=== PATIENT | female | born 1945 | race Caucasian/White ===

== ENCOUNTER 2017-07-07 11:11 | Inpatient (IN) ==
--- NOTE | 2017-07-07 09:54 | Discharge Summary ---
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: Chronic Qualifiers: Fracture type: closed Laterality: right Qualified Code(s): S42.251K - Displaced fracture of greater tuberosity of right humerus, subsequent encounter for fracture with nonunion (2) Brachial plexus injury, right Priority: Primary Status: Acute Qualifiers: Encounter type: initial encounter Qualified Code(s): S14.3XXA - Injury of brachial plexus, initial encounter (3) Tobacco abuse Priority: Secondary Status: Chronic (4) Hyperlipidemia Priority: Secondary Status: Chronic Qualifiers: Hyperlipidemia type: pure hypercholesterolemia Qualified Code(s): E78.00 - Pure hypercholesterolemia, unspecified; E78.0 - Pure hypercholesterolemia (5) HTN (hypertension) Priority: Primary Status: Acute Qualifiers: Hypertension type: essential hypertension Qualified Code(s): I10 - Essential (primary) hypertension - Discharge Medications Home Medications: Ibuprofen [Motrin] 600 mg PO BID PRN 07/07/17 [History] Mv-Mn/FA/Vit K/Lycop/Lut/Coq10 [Daily Multivitamin Capsule] 1 tab PO DAILY 07/07 [History] OxyCODONE Immed Rel [Roxicodone 5 MG] 5 mg PO Q4HR PRN #24 tablet 07/07/17 [Rx] Allergies/Adverse Reactions: 3 Allergy/AdvReac Type Severity Reaction Status Date / Time Sulfa (Sulfonamide Allergy Rash Verified 07/07/17 11:52 Antibiotics) Primary care physician: Wilian Minor MD - Patient Status Disposition: Transfer Inpatient Rehab Fac Condition: Good Functional capacity at discharge: independent ambulation Overall status at discharge: patient is progressing back to baseline - Discharge Instructions Follow Up With: Wilian Minor MD [Primary Care Provider] - - Hospital Course Hospital course: Ms. Coffey is a 71 year old female Status post right total shoulder replacement reverse. Patient with an episode of acute hypertension divided by hospitalist. Patient seen this morning doing well no complaints. Otherwise The patient had an uneventful postoperative course. They received antibiotics and physical therapy and were discharged in stable condition. There will follow-up in the office in 2 weeks. - Time Spent with Patient Total time spent providing and/or coordinating discharge services:
[2017-07-07] MEDS ORDERED: Albuterol 2.5 MG/3 ML NEBULIZER IH ONE (11:33)
[2017-07-07] MEDS ORDERED: CeFAZolin Syr 2,000MG/20 ML 2,000 MG/20 ML SYRINGE IVPB ONE (11:33)
[2017-07-07] MEDS ORDERED: Ringers Solution, Lactated 1,000 ML IVC SCH ×2 (11:45→16:36)
--- NOTE | 2017-07-07 12:15 | History & Physical Report ---
Date of Encounter: 07/07/17 Time of Encounter: 12:15 24 Hour HP Update - Instructions Instructions: If the History and Physical is less than 30 days old and was completed prior to A.M. admission and or procedure and has NOT been updated on calendar day of procedure please complete this update prior to performing procedure. - Update Patient reports changes in Medical Condition: No Changes in examination, assessment, or condition: No Changes in Medication: No Preop tests/diagnostics Reviewed: Yes Surgery Remains Indicated: Yes Consent for Planned Operative Procedure(s) Verified: Yes - Pre-Operative Checklist Preoperative Checklist Indicated: No Prophylactic Antibiotic Ordered: Yes Is VTE Prophylaxis Indicated?: Yes
[2017-07-07] MEDS ORDERED: *HR* Labetalol 20 MG/4 ML SYRINGE IVP PRN (12:16)
[2017-07-07] MEDS ORDERED: *HR* Promethazine 25 MG/ML VIAL IVP PRN (12:16)
[2017-07-07] MEDS ORDERED: Acetaminophen IV 1,000 MG/100 ML INFUS..BTL IVPB ONE (12:17)
--- NOTE | 2017-07-07 12:21 | Anesthesia Evaluation PreOp ---
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 (Complete tear R-Rotator cuff w/ suspected brachial plexus injury) Other Medical History: Denies Any Significant HX, Other (Squamous cell Ca L-hand , R-upper back) Anesthesia History: No Prior Anesthetic Complications, Past Anesthesia (Allie, Ulnar nerve transposition) Alcohol Use: occasionally Drug use: none Medications and Allergies HYDROcodone/Acet 5/325 mg [[place] 5-325 mg] 1 tab PO HS 07/07/17 [History] Ibuprofen [Motrin] 600 mg PO BID PRN 07/07/17 [History] Mv-Mn/FA/Vit K/Lycop/Lut/Coq10 [Daily Multivitamin Capsule] 1 tab PO DAILY 07/07 [History] OxyCODONE Immed Rel [Roxicodone 5 MG] 5 mg PO Q4HR PRN #24 tablet 07/07/17 [Rx] 3 Allergy/AdvReac Type Severity Reaction Status Date / Time Sulfa (Sulfonamide Allergy Rash Verified 07/07/17 11:52 Antibiotics) - Meds/Allergy Pre-op Review Medications Reviewed: Yes Allergies Reviewed: Yes Beta Blockers on Current Med List: No Anesthesia Exam O2 Sat Height 1.68 m Height 1.68 m Height 1.68 m Weight 58.967 kg Weight 58.967 kg Weight 59.421 kg O2 Sat by Pulse Oximetry 95 Vital Signs Temp Pulse Resp BP Pulse Ox 97.9 F 75 18 164/85 95 07/07/17 11:56 07/07/17 11:56 07/07/17 11:56 07/07/17 11:56 07/07/17 11:56 Height: 5'6 Weight: 131# BMI = 21 - HEENT Pupil (Motor): Pupils equal, EOMI Mallampati: II Teeth: Edentulous Oral Opening: Greater than 3 - 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 Sarah Beth Martinez MD
[2017-07-07] MEDS ORDERED: Gabapentin 300 MG CAPSULE PO STA ×2 (12:24→15:43)
[2017-07-07] MEDS ORDERED: cloNIDine HCl 0.1 MG TABLET PO ONE ×2 (12:32→15:39)
[2017-07-07] MEDS ORDERED: Ondansetron 4 MG/2 ML VIAL ONE (12:52)
[2017-07-07] MEDS ORDERED: *HR* Succinylcholine 200 MG/10 ML VIAL IVP ONE (12:52)
[2017-07-07] MEDS ORDERED: Lidocaine -MPF 2% 2 ML VIAL ONE (12:52)
[2017-07-07] MEDS ORDERED: Dexamethasone 4 MG/ML VIAL ONE (12:52)
[2017-07-07] MEDS ORDERED: *HR* FentaNYL (PF) 100 MCG/2 ML VIAL ONE ×2 (12:52→14:04)
[2017-07-07] MEDS ORDERED: *HR* Midazolam HCl 2 MG/2 ML VIAL ONE ×2 (12:58→12:59)
[2017-07-07] MEDS ORDERED: *HR* Propofol 200 MG/20 ML VIAL IVP ONE (12:58)
[2017-07-07 13:06] LABS: Basophils % 0.5 %; Eosinophils % 0.5 %; Hematocrit 39.5 % (35.3-44.9); Hemoglobin 13.3 g/dL (11.5-15.4); Immature Granulocytes % 1.6 % (0-4); Lymphocytes # 2.1 K/mcL (0.6-4.6); Lymphocytes % 25.9 %; Mean Corpuscular HGB Conc 33.7 g/dL (31.6-35.5); Mean Corpuscular Volume 89.2 fL (83.0-100.0); Mean Platelet Volume 10.7 fL (9.4-12.4); Monocytes # 0.9 K/mcL (0.0-1.3); Monocytes % 11.5 %; Neutrophils # 4.9 K/mcL (1.6-8.9); Nucleated Red Blood Cells 0.2 /100 WBC (0); Platelet Count 191 K/mcL (140-400); Red Blood Count 4.43 M/mcL (3.82-4.97); Red Cell Distribution Width 11.9 % (11.5-14.5)
[2017-07-07 13:18] LABS: BUN/Creatinine Ratio 23 (6-26); Blood Urea Nitrogen 15 mg/dL (7-20); Calcium 9.1 mg/dL (8.6-10.8); Carbon Dioxide 22 mEq/L (19-29); Chloride 111 mEq/L (98-109); Glucose 92 mg/dL (70-99); Osmolality,Calculated 298 (280-300); Sodium 144 mEq/L (136-145); eGFR For African Americans > 60 (> 60); eGFR For Non-African Americans > 60 (> 60)
[2017-07-07 13:19] LABS: Potassium 3.8 mEq/L (3.5-4.5)
[2017-07-07] MEDS ORDERED: Lidocaine -MPF 4% 5 ML AMPUL ONE (13:57)
[2017-07-07] MEDS: *HR* HYDROmorphone (PF) 1 MG/ML SYRINGE IVP PRN ×6 (14:59→16:03)
[2017-07-07 15:26] LABS: Hematocrit 35.4 % (35.3-44.9)
[2017-07-07 15:28] LABS: Hemoglobin 11.5 g/dL (11.5-15.4)
[2017-07-07] MEDS ORDERED: *HR* Magnesium Sulfate 1 GM/2 ML VIAL ONE ×2 (15:40)
[2017-07-07] MEDS ORDERED: Gabapentin 300 MG CAPSULE ONE (15:44)
[2017-07-07] MEDS ORDERED: cloNIDine HCl 0.1 MG TABLET ONE (15:44)
[2017-07-07] MEDS ORDERED: *HR* HYDROmorphone (PF) 1 MG/ML SYRINGE IVP PRN ×3 (15:45→16:36)
[2017-07-07] MEDS ORDERED: MOM Conc 10 ML UD.LIQ PO PRN (16:36)
[2017-07-07] MEDS ORDERED: Sennosides 8.6 MG TABLET PO PRN (16:36)
[2017-07-07] MEDS ORDERED: Ondansetron 4 MG/2 ML VIAL IVP PRN (16:36)
[2017-07-07] MEDS ORDERED: Temazepam 15 MG CAPSULE PO PRN (16:36)
[2017-07-07] MEDS ORDERED: Naloxone 0.4 MG/ML INJ IVP PRN (16:36)
[2017-07-07] MEDS ORDERED: *HR* OxyCODONE Immed Rel 5 MG TABLET PO PRN (16:36)
[2017-07-07] MEDS: *HR* Enoxaparin 30 MG/0.3 ML SYRINGE SQ SCH (17:10)
--- NOTE | 2017-07-07 17:38 | Electrocardiograph Report ---
[place] [employer] Interactive Test Date: 2017-07-07 Pat Name: Mary Coffey Department: 106 Room: [facility] Gender: Relief Man: PAO : 1945 Requested By: Gurvinder Dinero Order Number: [id number] Reading MD: Tyler Santos MD Measurements Intervals [place] Rate: 69 P: 46 WV: 160 QRS: 34 QRSD: 82 T: 61 QT: 423 QTc: 442 Interpretive Statements SINUS RHYTHM POSSIBLE ANTERIOR MYOCARDIAL INFARCTION, OF INDETERMINATE AGE POSSIBLE INFERIOR MYOCARDIAL INFARCTION, PROBABLY OLD Electronically Signed On 07-07-2017 17:37:26 EDT by Tyler Santos MD
[2017-07-07] MEDS ORDERED: *HR* Enoxaparin 30 MG/0.3 ML SYRINGE SQ SCH (18:00)
--- NOTE | 2017-07-07 18:44 | Anesthesia Evaluation Post Op ---
Date of Encounter: 07/07/17 Time of Encounter: 16:20 - Vital Signs Vital Signs: Vital Signs Temp Pulse Resp BP Pulse Ox 07/07/17 16:23 64 18 182/90 96 07/07/17 16:13 66 18 172/90 94 07/07/17 16:03 98.0 F 66 18 188/94 97 07/07/17 15:53 66 18 185/95 94 07/07/17 15:43 61 18 191/100 94 07/07/17 15:33 98.1 F 61 18 94 07/07/17 15:23 98.2 F 64 18 186/94 94 07/07/17 15:13 66 18 189/97 99 07/07/17 15:03 98.0 F 62 18 182/98 100 07/07/17 14:53 98.0 F 65 14 162/91 100 07/07/17 14:14 97.9 F 75 18 164/85 95 07/07/17 11:56 97.9 F 75 18 164/85 95 Intake and Output 07/07/17 07/07/17 07/07/17 07:59 15:59 23:59 Output Total 100 / 100 Balance -100 / -100 Output: Urine 0 / 0 Estimated Blood Loss 100 / 100 Other: Weight 58.967 kg Patient Weight 07/07/17 23:59 Weight 58.967 kg - Lungs Lungs: Clear Ascult./Percussion - Airway Airway: Non-obstructed - Cardiovascular Regular Rate - Mental Status Mental Status: Alert & Oriented, Answers Appropriately - Pain Pain Scale: 0 Pain Scale used: Numeric (1 - 10) - Nausea Vomiting Nausea Vomiting: Not Present - Hydration Hydration: Tolerates oral liquids - Discharge PostOp Status: Transfer Patient to floor Anes Supervising Prov Stmt: Pt seen/evaluated, VSS and pt has met criteria for discharge to floor. -MD Juan
[2017-07-08] MEDS: CeFAZolin Premix DUPLEX 2,000 MG/50 ML BAG IVPB SCH ×2 (00:35→06:34)
[2017-07-08 04:02] LABS: Hematocrit 36.4 % (35.3-44.9); Hemoglobin 12.3 g/dL (11.5-15.4)
[2017-07-08] MEDS: *HR* Enoxaparin 30 MG/0.3 ML SYRINGE SQ SCH ×2 (06:35→17:36)
[2017-07-08] MEDS: Multivit/Ca/Min/Fe/FA 1 TAB TABLET PO SCH (08:32)
--- NOTE | 2017-07-08 10:12 | Orthopedics Progress Note ---
Date of Encounter: 07/08/17 Time of Encounter: 10:11 Subjective Interval history: Patient was seen this morning doing well without complaints. Afebrile vital signs stable. Operative extremity: Neurovascularly intact Dressing clean dry and intact Calves nontender Assessment and plan: Continue with postoperative care Objective Vital signs: Vital Signs Temp Pulse Resp BP Pulse Ox 07/08/17 06:52 98.3 F 76 14 174/80 92 07/07/17 21:00 97.7 F 76 15 169/82 92 07/07/17 19:45 98.7 F 14 136/81 92 07/07/17 18:40 98.0 F 62 16 147/85 92 07/07/17 17:45 98.0 F 60 16 150/82 91 07/07/17 17:15 97.9 F 63 16 158/81 90 07/07/17 16:45 97.7 F 68 14 168/97 93 07/07/17 16:23 64 18 182/90 96 07/07/17 16:13 66 18 172/90 94 07/07/17 16:03 98.0 F 66 18 188/94 97 07/07/17 15:53 66 18 185/95 94 07/07/17 15:43 61 18 191/100 94 07/07/17 15:33 98.1 F 61 18 94 07/07/17 15:23 98.2 F 64 18 186/94 94 07/07/17 15:13 66 18 189/97 99 07/07/17 15:03 98.0 F 62 18 182/98 100 07/07/17 14:53 98.0 F 65 14 162/91 100 07/07/17 14:14 97.9 F 75 18 164/85 95 07/07/17 11:56 97.9 F 75 18 164/85 95 Intake and Output 07/07/17 07/08/17 07/08/17 23:59 07:59 15:59 Intake Total 50 / 50 480 / 480 Output Total 200 / 200 Balance -150 / -150 480 / 480 Intake: IV Fluids 50 / 50 Ancef Premix DUPLEX 2,000 mg In 50 / 50 50 ml @ 100 mls/hr IVPB Q8H [place] Rx#:[id number] Oral 480 / 480 Output: Urine 200 / 200 Other: Meal Breakfast Percent of Meal Consumed 90% - Labs CBC & BMP: 07/08/17 03:22 07/07/17 12:59 Labs: Abnormal lab results Nucleated RBCs/100 WBC 0.2 /100 WBC (0) H 07/07/17 12:59 Chloride 111 mEq/L (98-109) H 07/07/17 12:59 - VTE Documentation of Mechanical Device: Venous foot pump, device Consult Discharge Plan - Plan Referrals: Wilian Minor MD [Primary Care Provider] -
[2017-07-08] MEDS: *HR* OxyCODONE Immed Rel 5 MG TABLET PO PRN (20:10)
--- NOTE | 2017-07-08 22:51 | Internal Medicine Consult Note ---
<Bravo Angeles - Last Filed: 07/08/17 23:30> Date of Encounter: 07/08/17 Time of Encounter: 22:00 - Assessment and Plan (1) Brachial plexus injury, right Current Visit: Yes Status: Acute Qualifiers: Encounter type: initial encounter Qualified Code(s): S14.3XXA - Injury of brachial plexus, initial encounter (2) HTN (hypertension) Current Visit: Yes Status: Acute Assessment and plan: Acute HTN r/t current injury. Pt. reports HTN following previous surgical intervention. Denies taking medications currently for HTN. Will administer lisinopril 10 mg daily, amlodipine 5 mg daily, and hydralazine 10 mg every 6 when necessary. Monitor pt. and VS. 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 of HLD, but pt. denies use of statin currently. Lipid panel in a.m. labs. Qualifiers: Hyperlipidemia type: pure hypercholesterolemia Qualified Code(s): E78.00 - Pure hypercholesterolemia, unspecified; E78.0 - Pure hypercholesterolemia (5) Tobacco abuse Current Visit: Yes Status: Chronic Assessment and plan: Hx of chronic tobacco abuse. Pt. reports smoking 1 PPD w/o intent to quit at this time. (6) DVT prophylaxis Current Visit: Yes Status: Acute Assessment and plan: Bilateral SCDs on LEs for DVT prophylaxis. Internal Medicine - CN: HPI - Data of Consult Patient: new to practice Requesting Physician: Gurvinder Dinero MD - Consult Narrative Reason for consult: Monitor and address HTN History of present illness: Ms. Coffey is a 71 year old female with medical hx of hyperlipidemia, osteoporosis , and chronic tobacco abuse who presents with displaced closed fracture of greater tuberosity of humerus with nonunion. Pt. reports that she fell and injured her right shoulder. Pt. also reports previous fall and injury in January 2017. Pt. reports pain in right shoulder and cough r/t current tobacco abuse but denies recent illness, fever, chills, nausea, vomiting, abdominal pain, chest pain, palpitations, weakness, numbness, tingling, dizziness, lightheadedness, changes in vision, unusual bleeding, pre-syncope, or syncope. Pt. also denies taking medications for HTN or HLD at the present time. Past Med Surg Social Fam HX - Past Medical History Source: patient, old records reviewed Medical history: hyperlipidemia, osteoporosis Psychiatric history: no psych history - Past Surgical History Surgical History: cholecystectomy - Social History Smoking Status: Current every day smoker Packs per day: 1 PPD Alcohol use: occasionally Drug use: none Current living situation: Home, With Family Activity Level: Independent ambulation Recent Out of Country Travel Within the Last 8 Weeks: No Exposure or Possible Exposure to Illness During Travel: No - Family History Father Race: Family Member Ethnicity: Non- Living Status: Age at : 82 Cause of : Old age Hx Family Medical Disorders: No Mother Race: Family Member Ethnicity: Non- Living Status: Cause of : Suicide Brother Race: Family Member Ethnicity: Non- Living Status: Age at : 68 Cause of : Colon cancer Hx Family Cancer: Yes (Colon) Sister Race: Family Member Ethnicity: Non- Living Status: Still Living Hx Family Autoimmune Disorders: Yes (Lupus) - Constitutional Constitutional: as per HPI, falls - EENT Eyes: as per HPI Ears: as per HPI Nose, mouth and throat: as per HPI - Breasts Breasts: as per HPI - Cardiovascular Cardiovascular ROS IM: as per HPI - Respiratory Respiratory: as per HPI, cough - Gastrointestinal Gastrointestinal: as per HPI - Genitourinary Genitourinary: as per HPI Menstruation: as per HPI - Musculoskeletal Musculoskeletal ROS IM: as per HPI - Integumentary Integumentary IM: as per HPI - Neurological Neurological ROS: as per HPI - Psychiatric Psychiatric: as per HPI - Endocrine Endocrine IM: as per HPI - Hematologic/Lymphatic Hematologic/Lymphatic: as per HPI - Allergic/Immunologic Allergic/Immunologic: as per HPI Internal Medicine - CN: Meds Ibuprofen [Motrin] 600 mg PO BID PRN 07/07/17 [History] Mv-Mn/FA/Vit K/Lycop/Lut/Coq10 [Daily Multivitamin Capsule] 1 tab PO DAILY 07/07 [History] OxyCODONE Immed Rel [Roxicodone 5 MG] 5 mg PO Q4HR PRN #24 tablet 07/07/17 [Rx] 3 Allergy/AdvReac Type Severity Reaction Status Date / Time Sulfa (Sulfonamide Allergy Rash Verified 07/07/17 11:52 Antibiotics) Internal Medicine - CN: Exam - Constitutional Vitals: Temp Pulse Resp BP Pulse Ox 98.6 F 63 18 143/81 90 07/08/17 19:33 07/08/17 19:33 07/08/17 19:33 07/08/17 19:33 07/08/17 19:33 General appearance IM: Present: cooperative, A&O X 3, pleasant, no acute distress, answers questions appropriately - Head Head exam: Present: normal inspection - Eye Eye exam: Present: PERRL, conjuntiva pink, sclera anicteric Pupils: Present: normal accommodation, PERRL - ENT ENT exam: Present: normal exam, normal external ear exam - Neck Neck exam general surgery: Present: normal inspection, supple, trachea midline - Respiratory Respiratory exam: Present: decreased breath sounds, wheezes - Cardiovascular Cardiovascular exam IM: Present: RRR, +S1, +S2 - GI/Abdominal GI/Abdominal exam IM: Present: normal bowel sounds, soft, no peritoneal signs - Rectal Rectal exam: Present: deferred - Additional comments: exam deferred. - Extremities Exam Extremities exam IM: Present: warm, radial pulses palpable and symmetrical - Neurological Exam Neurological exam: Present: alert, CN II-XII intact, oriented X3, no focal deficits - Psychiatric Psychiatric exam: Present: normal affect, normal mood - Skin Skin exam IM: Present: dry, intact Internal Medicine - CN: Reslt - Labs CBC & Chem 7: 07/08/17 03:22 07/07/17 12:59 Labs: Short CBC 07/08/17 Range/Units 03:22 Hgb 12.3 (11.5-15.4) g/dL Hct 36.4 (35.3-44.9) % - EKG Data EKG shows normal: sinus rhythm - EKG Data Prior EKG available for review: no Interpretation IM: suggestive of ischemia EKG comments: 07/08/17 22:58 EKG dated 07/08/17 shows sinus rhythm with possible anterior myocardial infarction of indeterminate, and possible inferior myocardial infarction ( probably old). Consult Discharge Plan - Plan Referrals: Wilian Minor MD [Primary Care Provider] - <Jasen Rodrigues H - Last Filed: 07/09/17 01:17 EDT> Date of Encounter: 07/09/17 Internal Medicine - CN: HPI - Data of Consult Requesting Physician: Gurvinder Dinero MD - Consult Narrative History of present illness: Ms. Coffey is a 71 year old female Internal Medicine - CN: Exam - Constitutional Vitals: Temp Pulse Resp BP Pulse Ox 98.4 F 68 18 164/76 91 07/08/17 23:06 07/08/17 23:06 07/08/17 23:06 07/08/17 23:06 07/08/17 23:06 Internal Medicine - CN: Reslt - Labs CBC & Chem 7: 07/08/17 03:22 07/07/17 12:59 Labs: Short CBC 07/08/17 Range/Units 03:22 Hgb 12.3 (11.5-15.4) g/dL Hct 36.4 (35.3-44.9) % - Attending Attestation Accelerated hypertension Start amlodipine 5 mg, lisinopril 10 mg, adjust as needed Hydralazine IV as needed For this encounter, I have reviewed the DIRECTOR OF DISTRIBUTION or PA documentation, treatment plan, and medical decision making; and I have had face to face time with this patient.
[2017-07-08] MEDS ORDERED: hydrALAZINE 10 MG TABLET PO PRN (23:18)
[2017-07-09] MEDS ORDERED: hydrALAZINE 10 MG TABLET PO PRN (01:17)
[2017-07-09] MEDS: amLODIPine 5 MG TABLET PO SCH ×2 (01:20→07:11)
[2017-07-09] MEDS: *HR* OxyCODONE Immed Rel 5 MG TABLET PO PRN ×2 (02:58→21:13)
[2017-07-09] MEDS: *HR* Enoxaparin 30 MG/0.3 ML SYRINGE SQ SCH ×2 (06:04→17:15)
[2017-07-09 06:48] LABS: Hematocrit 39.3 % (35.3-44.9); Hemoglobin 12.9 g/dL (11.5-15.4)
[2017-07-09 07:04] LABS: Chol/HDL Ratio 3.2 (0-4.9)
[2017-07-09] MEDS: Multivit/Ca/Min/Fe/FA 1 TAB TABLET PO SCH (07:11)
--- NOTE | 2017-07-09 10:53 | Internal Med Progress Note ---
Date of Encounter: 07/09/17 Time of Encounter: 10:05 - Assessment and plan (1) HTN (hypertension) Current Visit: Yes Status: Acute Assessment and plan: Blood pressure is now better controlled. Continue lisinopril and amlodipine. We will continue to monitor blood pressure closely. 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 Pain control. Awaiting placement to skilled rehabilitation. Qualifiers: Fracture type: closed Laterality: right Qualified Code(s): S42.251K - Displaced fracture of greater tuberosity of right humerus, subsequent encounter for fracture with nonunion (3) Hyperlipidemia Current Visit: Yes Status: Chronic Assessment and plan: Normal cholesterol profile. Qualifiers: Hyperlipidemia type: pure hypercholesterolemia Qualified Code(s): E78.00 - Pure hypercholesterolemia, unspecified; E78.0 - Pure hypercholesterolemia (4) DVT prophylaxis Current Visit: Yes Status: Acute Assessment and plan: Continue Lovenox - Subjective Interval history: Patient is feeling better today. Her pain is better controlled and her right upper extremity. Denies any headache. No chest pain. No shortness of breath - Constitutional Vitals: Temp Pulse Resp BP Pulse Ox 98.5 F 64 18 116/78 94 07/09/17 07:00 07/09/17 07:00 07/09/17 07:00 07/09/17 07:00 07/09/17 07:00 General appearance: Present: cooperative, A&O X 3, pleasant, no acute distress, answers questions appropriately - Respiratory Respiratory exam: Present: CTAB. Absent: accessory muscle use, rales, rhonchi, wheezes - GI/Abdominal GI/Abdominal exam: Present: normal bowel sounds, soft, no peritoneal signs. Absent: distended, tenderness - Extremities Exam Extremities exam: Present: warm, radial pulses palpable and symmetrical. Absent : calf tenderness, cyanotic, pedal edema Additional comments: Right upper extremity in sling Internal Medicine: Result - Labs CBC & Chem 7: 07/09/17 06:29 07/07/17 12:59 Labs: Short CBC 07/09/17 Range/Units 06:29 Hgb 12.9 (11.5-15.4) g/dL Hct 39.3 (35.3-44.9) % - VTE Documentation of Mechanical Device: Venous foot pump, device Consult Discharge Plan - Plan Referrals: Wilian Minor MD [Primary Care Provider] -
--- NOTE | 2017-07-09 11:13 | Orthopedics Progress Note ---
Date of Encounter: 07/09/17 Time of Encounter: 11:13 Subjective Interval history: Patient was seen this morning doing well without complaints. Afebrile vital signs stable. Operative extremity: Neurovascularly intact Dressing clean dry and intact Calves nontender Assessment and plan: Continue with postoperative care Anticipate D/C today Objective Vital signs: Vital Signs Temp Pulse Resp BP Pulse Ox 07/09/17 07:00 98.5 F 64 18 116/78 94 07/09/17 03:34 98.1 F 57 20 118/72 92 07/08/17 23:06 98.4 F 68 18 164/76 91 07/08/17 19:33 98.6 F 63 18 143/81 90 07/08/17 15:12 98.1 F 78 14 173/76 92 Intake and Output 07/09/17 07/09/17 07/09/17 00:59 07:59 15:59 Intake Total 360 / 360 Output Total Balance 360 / 360 Intake: Oral 360 / 360 Output: Urine Other: Meal Breakfast Percent of Meal Consumed 50% # Voids Weight Patient Weight 07/09/17 22:59 Weight 60.2 kg - Labs CBC & BMP: 07/09/17 06:29 07/07/17 12:59 Labs: Abnormal lab results Nucleated RBCs/100 WBC 0.2 /100 WBC (0) H 07/07/17 12:59 Chloride 111 mEq/L (98-109) H 07/07/17 12:59 - VTE Documentation of Mechanical Device: Venous foot pump, device Consult Discharge Plan - Plan Referrals: Wilian Minor MD [Primary Care Provider] -
[2017-07-10] MEDS: *HR* OxyCODONE Immed Rel 5 MG TABLET PO PRN ×2 (01:07→05:20)
[2017-07-10] MEDS: *HR* Enoxaparin 30 MG/0.3 ML SYRINGE SQ SCH (05:21)
--- NOTE | 2017-07-10 07:31 | Orthopedics Progress Note ---
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 Current Visit: Yes Status: Chronic Qualifiers: Fracture type: closed Laterality: right Qualified Code(s): S42.251K - Displaced fracture of greater tuberosity of right humerus, subsequent encounter for fracture with nonunion (2) Brachial plexus injury, right Current Visit: Yes Status: Acute Qualifiers: Encounter type: initial encounter Qualified Code(s): S14.3XXA - Injury of brachial plexus, initial encounter (3) Tobacco abuse Current Visit: Yes Status: Chronic (4) Hyperlipidemia Current Visit: Yes Status: Chronic Qualifiers: Hyperlipidemia type: pure hypercholesterolemia Qualified Code(s): E78.00 - Pure hypercholesterolemia, unspecified; E78.0 - Pure hypercholesterolemia (5) HTN (hypertension) Current Visit: Yes Status: Acute Qualifiers: Hypertension type: essential hypertension Qualified Code(s): I10 - Essential (primary) hypertension Subjective Interval history: Patient was seen this morning doing well without complaints. Afebrile vital signs stable. Operative extremity: Neurovascularly intact Dressing clean dry and intact Calves nontender Assessment and plan: Continue with postoperative care Discharge today Objective Vital signs: Vital Signs Temp Pulse Resp BP Pulse Ox 07/09/17 23:50 98.3 F 66 18 133/80 98 07/09/17 19:35 98.2 F 69 20 134/82 98 07/09/17 11:09 98.3 F 60 16 106/60 95 Intake and Output 07/09/17 07/09/17 07/10/17 15:59 23:59 07:59 Intake Total 720 / 720 540 / 540 Output Total 240 / 240 Balance 720 / 720 300 / 300 Intake: Oral 720 / 720 540 / 540 Output: Urine 240 / 240 Other: Meal Lunch Dinner Percent of Meal Consumed 75% 100% # Voids 1 1 Weight 61.4 kg Patient Weight 07/10/17 23:59 Weight 61.4 kg - Labs CBC & BMP: 07/09/17 06:29 07/07/17 12:59 Labs: Abnormal lab results Nucleated RBCs/100 WBC 0.2 /100 WBC (0) H 07/07/17 12:59 Chloride 111 mEq/L (98-109) H 07/07/17 12:59 - VTE Documentation of Mechanical Device: Venous foot pump, device Consult Discharge Plan - Plan Referrals: Wilian Minor MD [Primary Care Provider] -
--- NOTE | 2017-07-10 09:20 | Orthopedic Operative Note ---
Date of procedure: 07/07/17 Pre-op diagnosis: Displaced malunion greater tuberosity right shoulder Post-op diagnosis: same (Brachial plexus injury) Procedure: Procedure: Total Shoulder Replacment Reverse, right Estimated blood loss: 100 cc Hardware: Metal and polyethylene replacement: Arthrex small glenoid baseplate, 2 4.5 screws. 1 6.5 screw, and a +4 glenosphere, 7 humeral stem, poly insert 3 Exam Under anesthesia: Restrict motion all planes Procedural Notes: Displaced greater tuberosity fracture to the level of glenoid Operative procedure: The patient was brought to the operating room and placed on the operating room table. After general anesthesia was administered the operative shoulder was examined. Findings were noted. The patient was placed in the modified beachchair position. All pressure points were padded appropriately. And the head was stabilized in the neutral position. The operative extremity was prepped and draped in the sterile surgical fashion. The patient received IV antibiotics prior to skin incision. A standard deltopectoral approach was made to the operative shoulder. Incision was made to the skin and subcutaneous tissue,hemo stasis was obtained with Bovie cautery. Using careful blunt dissection the cephalic vein was identified and mobilized medially. The deltopectoral interval was developed and the clavipectoral fascia was incised. The defect was identified and the humeral head with the fracture occurred the greater tuberosity was palpated was immobile. Decision was made to proceed with reverse shoulder replacement. The subscap was released off the lesser tuberosity and tagged with #2 FiberWire suture subscap was irreparable. The humerus was dislocated patient noted to have irreparable tear supraspinatus tendon, and the humeral cut was made along the anatomic neck. Anterior and posterior Bankart retractors were placed to expose the glenoid. The glenoid guide was seated and the centering hole was made. It was reamed with the appropriate reamer. Small was seated and secured with (2) 4.5 screws and one 6.5 screw. The baseplate was irrigated and dried and the 39 +4 Glenosphere was seated and secured with the Montiel taper. The Montiel taper was tested and found to be secure the humerus was redislocated and prepared with the diaphyseal reamers, followed by a broaching process up to the appropriate size 7 in the patient's anatomic version. The metaphyseal reamer was then utilized. Trial reduction found the shoulder to be relocatable. Trial components were removed and The appropriate 7 stem was impacted in place in the patient's anatomic version. Trial reduction found the shoulder to be relocatable and stable with the appropriate 3. Trial component was removed and the real 3 was seated and secured the shoulder was reduced. The shoulder had excellent motion and excellent stability and no evidence of dislocation. The deep tissue was irrigated with pulse irrigation. The deltopectoral interval was closed with a running #1 PDS suture, subcutaneous tissue was irrigated and closed with 0 PDS suture, the skin was closed with Dermabond. The patient was placed in a sterile dressing, abduction brace and extubated. The patient was then transferred to the recovery room in stable condition. Anesthesia: TRAVISA Surgeon: Gurvinder Dinero Condition: stable Disposition: PACU
[2017-07-10] MEDS: amLODIPine 5 MG TABLET PO SCH (09:52)
[2017-07-10] MEDS: Multivit/Ca/Min/Fe/FA 1 TAB TABLET PO SCH (09:52)
--- NOTE | 2017-07-10 09:53 | Physician Discharge Referral ---
ExtendedCare Referral Info Transfer To: [facility] Provider in Charge: Provider in Charge after Transfer: PCP Institutional Level of Care: Skilled - Diagnosis (1) Status post reverse total shoulder replacement Priority: Primary Status: Acute (2) Displaced fracture of greater tuberosity of humerus with malunion Priority: Primary Status: Acute (3) Brachial plexus injury, right Priority: Primary Status: Acute (4) Tobacco abuse Priority: Secondary Status: Chronic (5) Hyperlipidemia Priority: Secondary Status: Chronic (6) HTN (hypertension) Priority: Secondary Status: Acute Expected Duration of Placement: < 30 days Prognosis: Good Aware of Diagnosis: Patient Aware of Prognosis: Patient - Transfer Medications Home Medications: Ibuprofen [Motrin] 600 mg PO BID PRN 07/07/17 [History] Mv-Mn/FA/Vit K/Lycop/Lut/Coq10 [Daily Multivitamin Capsule] 1 tab PO DAILY 07/07 [History] OxyCODONE Immed Rel [Roxicodone 5 MG] 5 mg PO Q4HR PRN #24 tablet 07/07/17 [Rx] Allergies/Adverse Reactions: 3 Allergy/AdvReac Type Severity Reaction Status Date / Time Sulfa (Sulfonamide Allergy Rash Verified 07/07/17 11:52 Antibiotics) - Respiratory Orders None Smoking Cessation: Smoking cessation has been advised. For more information, call the [employer] Quit Line at 2-960-EIACNOW. - Ancillary Orders May use pressure relief devices daily prn, May go on JUNITO w/family/respon republican w /meds at nurse discretion PRN - Mobility Orders Chair, Ambulate - Rehabiliation Orders Rehab Potential: Good Rehab Orders: ROM Exercises, Evaluation for Physical Therapy, Evaluation for Occupational Therapy Other: Pre-op diagnosis: Displaced malunion greater tuberosity right shoulder Post-op diagnosis: same (Brachial plexus injury) Procedure: Procedure: Total Shoulder Replacment Reverse, right Total Shoulder precautions x 6 weeks. PT restrictions as listed in PT referral. Sling during activity and at night. Elbow ROM and detention sergeant strengthening. Opsite in place, remove at first post-operative appointment. NWB to affected upper extremity. - Treatments Skin tear care topically daily PRN per policy - Diet Orders Regular CERTIFICATION: I certify that the transfer of the above named patient to an Extended Care Facility is necessary for the continuing treatment of the diagnosis listed. The above information is true and accurate reflection of patient's current condition. Confidential - Redisclosure prohibited without a patient's written consent.
[2017-07-10 10:50] VITALS: BP 121/70
== END 2017-07-10 12:00 | DRG 483 ==
LOC: SAMDAY 11:11 → 3NENU 16:35
PROVIDERS: ADMIT Orthopaedic Surgery; ATTEND Orthopaedic Surgery

== ENCOUNTER 2020-03-07 12:54 | Inpatient (IN) ==
[2020-03-07 13:24] LABS: Basophils # 0.1 K/mcL (0.0-0.2); Basophils % 0.5 %; Eosinophils % 0.1 %; Hematocrit 45.3 % (35.3-44.9); Hemoglobin 14.3 g/dL (11.5-15.4); Lymphocytes # 0.7 K/mcL (0.6-4.6); Lymphocytes % 6.7 %; Mean Corpuscular HGB Conc 31.6 g/dL (31.6-35.5); Mean Corpuscular Hemoglobin 28.4 pg (28.0-33.3); Mean Corpuscular Volume 90.1 fL (83.0-100.0); Mean Platelet Volume 10.6 fL (9.4-12.4); Monocytes # 0.2 K/mcL (0.0-1.3); Monocytes % 2.2 %; Neutrophils # 8.8 K/mcL (1.6-8.9); Platelet Count 184 K/mcL (140-400); Red Blood Count 5.03 M/mcL (3.82-4.97); Red Cell Distribution Width 13.1 % (11.5-14.5); Segmented Neutrophils % 89.5 %; White Blood Count 9.9 K/mcL (4.3-11.1)
[2020-03-07] MEDS ORDERED: cefTRIAXone 1,000 MG in Water for inj. (sterile) 10 ML IVP ONE (13:30)
[2020-03-07] MEDS ORDERED: Azithromycin 500 MG in 0.9 % Sodium Chloride 250 ML IVPB ONE (13:30)
[2020-03-07] MEDS: 0.9 % Sodium Chloride 1,000 ML IVC SCH ×2 (13:42→15:27)
[2020-03-07 13:48] LABS: Bilirubin,Urine Negative (Negative); Blood,Urine Small (Negative); Clarity,Urine Clear (Clear); Color,Urine Light-Yellow (Yellow); Glucose,Urine (UA) Normal (Normal); Ketones,Urine Negative (Negative); Leukocyte Esterase,Urine Small (Negative); Mucus,Urine Few per lpf (None-Few); Nitrite,Urine Negative (Negative); PH,Urine 5.5 pH Units (5.0-8.0); Protein,Urine 70 mg/dL (Neg-Trace); Specific Gravity,Urine 1.021 (1.010-1.025); Squamous Epithelial Cell,Urine Few per hpf (None-Few); Urobilinogen,Urine Normal (Normal)
[2020-03-07 14:05] LABS: Alanine Aminotransferase 31 Units/L (7-52); Albumin/Globulin Ratio 1.2 (1.1-2.2); Alkaline Phosphatase 71 Units/L (34-104); BUN/Creatinine Ratio 22 (6-26); Bilirubin,Total 0.6 mg/dL (0.3-1.0); Blood Urea Nitrogen 18 mg/dL (8-23); Calcium 9.4 mg/dL (8.6-10.3); Carbon Dioxide 22 mEq/L (23-29); Chloride 105 mEq/L (98-107); Globulin 3.3 g/dL (2.4-3.5); Glucose 214 mg/dL (70-105); Osmolality,Calculated 292 (280-300); Potassium 3.9 mEq/L (3.5-5.1); Sodium 137 mEq/L (136-145); Total Protein 7.3 g/dL (6.4-8.9); Troponin I < 0.03 ng/mL (< 0.04); eGFR For African Americans > 60 (> 60); eGFR For Non-African Americans > 60 (> 60)
[2020-03-07] MEDS ORDERED: Isovue-370 500 ML BOTTLE IVP ONE (14:22)
[2020-03-07] MEDS ORDERED: Ondansetron ODT 4 MG TAB.RAPDIS SL PRN (16:58)
[2020-03-07] MEDS ORDERED: Naloxone 0.4 MG/ML INJ IVP PRN (16:58)
[2020-03-07] MEDS ORDERED: 0.9 % Sodium Chloride 1,000 ML IVC ONE (17:28)
[2020-03-07] MEDS ORDERED: *HR* Metoprolol 5 MG/5 ML VIAL IVP ONE (17:32)
[2020-03-07] MEDS ORDERED: *HR* Heparin 5,000 UNIT/ML VIAL IVP ONE (17:34)
[2020-03-07] MEDS ORDERED: *HR* Heparin 5,000 UNIT/ML VIAL IVP PRN ×2 (17:34)
[2020-03-07] MEDS ORDERED: Heparin 25,000 UNIT/250 ML D5W 25,000 UNIT/250 ML IV.SOLN IVC SCH (17:45)
[2020-03-07 18:28] LABS: Prothrombin Time 11.5 Seconds (9.4-12.1)
[2020-03-07 18:29] LABS: Heparin anti-factor XA UFH < 0.04 IU/mL (0.30-0.70)
[2020-03-07] MEDS: IPRATROPIUM/ALBUTEROL SULFATE 120 PUFF INHALER IH PRN (20:56)
[2020-03-07] MEDS ORDERED: *HR* Heparin 5,000 UNIT/ML VIAL SQ SCH (22:00)
[2020-03-08 00:52] LABS: Basophils % 0.2 %; Hematocrit 39.2 % (35.3-44.9); Hemoglobin 12.6 g/dL (11.5-15.4); Immature Granulocytes % 0.5 % (0-4); Lymphocytes # 0.8 K/mcL (0.6-4.6); Lymphocytes % 9.9 %; Mean Corpuscular HGB Conc 32.1 g/dL (31.6-35.5); Mean Corpuscular Hemoglobin 28.8 pg (28.0-33.3); Mean Corpuscular Volume 89.5 fL (83.0-100.0); Mean Platelet Volume 11.1 fL (9.4-12.4); Monocytes # 0.6 K/mcL (0.0-1.3); Monocytes % 7.9 %; Neutrophils # 6.6 K/mcL (1.6-8.9); Platelet Count 149 K/mcL (140-400); Red Blood Count 4.38 M/mcL (3.82-4.97); Red Cell Distribution Width 12.9 % (11.5-14.5); Segmented Neutrophils % 81.5 %; White Blood Count 8.1 K/mcL (4.3-11.1)
[2020-03-08 00:56] LABS: BUN/Creatinine Ratio 25 (6-26); Blood Urea Nitrogen 18 mg/dL (8-23); Calcium 8.1 mg/dL (8.6-10.3); Carbon Dioxide 20 mEq/L (23-29); Chloride 111 mEq/L (98-107); Glucose 154 mg/dL (70-105); Osmolality,Calculated 291 (280-300); Sodium 138 mEq/L (136-145); eGFR For African Americans > 60 (> 60); eGFR For Non-African Americans > 60 (> 60)
[2020-03-08] MEDS ORDERED: 0.9 % Sodium Chloride 250 ML ONE (05:35)
[2020-03-08] MEDS: IPRATROPIUM/ALBUTEROL SULFATE 120 PUFF INHALER IH PRN ×2 (05:45→11:11)
[2020-03-08] MEDS ORDERED: Azithromycin 500 MG in 0.9 % Sodium Chloride 250 ML IVPB SCH (09:00)
[2020-03-08] MEDS ORDERED: amLODIPine 5 MG TABLET PO SCH (09:00)
[2020-03-08] MEDS: Cholecalciferol (D-3) 1,000 UNIT (25MCG) TABLET PO SCH (09:11)
[2020-03-08] MEDS: cefTRIAXone 1,000 MG in Water for inj. (sterile) 10 ML IVP SCH (09:12)
[2020-03-08] MEDS: predniSONE 20 MG TABLET PO SCH (09:12)
[2020-03-08] MEDS ORDERED: *HR* LORazepam 2 MG/ML VIAL ONE (10:37)
[2020-03-08] MEDS ORDERED: *HR* Enoxaparin 40 MG/0.4 ML SYRINGE SQ ONE (10:51)
[2020-03-08] MEDS ORDERED: *HR* LORazepam 2 MG/ML VIAL IM STA (10:55)
[2020-03-08] MEDS: IPRATROPIUM/ALBUTEROL SULFATE 120 PUFF INHALER IH SCH ×3 (11:19→21:49)
[2020-03-08] MEDS: Metoprolol XL (24 HR) Succ 25 MG TAB.ER.24H PO SCH (12:19)
[2020-03-08] MEDS ORDERED: *HR* Metoprolol 5 MG/5 ML VIAL IVP ONE (22:44)
[2020-03-09] MEDS ORDERED: *HR* Metoprolol 5 MG/5 ML VIAL IVP ONE ×2 (01:52→02:10)
[2020-03-09 02:10] LABS: ABG Base Excess -2 mEq/L (-2 to 3); ABG HCO3 25 mEq/L (21-27); ABG Oxygen Saturation 96 % (95-98); ABG PCO2 48 mmHg (35-45); ABG PH 7.32 pH Units (7.32-7.45); ABG PO2 90 mmHg (85-104); ABG TCO2 26 mEq/L (20-26)
[2020-03-09] MEDS ORDERED: *HR* LORazepam 2 MG/ML VIAL IVP ONE (02:40)
[2020-03-09] MEDS ORDERED: *HR* Labetalol 20 MG/4 ML SYRINGE IVP ONE ×2 (03:08→04:07)
[2020-03-09] MEDS: IPRATROPIUM/ALBUTEROL SULFATE 120 PUFF INHALER IH SCH ×2 (03:50→08:07)
[2020-03-09] MEDS ORDERED: *HR* LORazepam 2 MG/ML VIAL IVP PRN (07:27)
[2020-03-09 07:29] LABS: Hemoglobin 13.6 g/dL (11.5-15.4); Mean Corpuscular HGB Conc 31.6 g/dL (31.6-35.5); Mean Corpuscular Hemoglobin 28.9 pg (28.0-33.3); Mean Corpuscular Volume 91.5 fL (83.0-100.0); Mean Platelet Volume 12.3 fL (9.4-12.4); Platelet Count 133 K/mcL (140-400); White Blood Count 21.3 K/mcL (4.3-11.1)
[2020-03-09] MEDS: cefTRIAXone 1,000 MG in Water for inj. (sterile) 10 ML IVP SCH (07:43)
[2020-03-09 07:49] LABS: BUN/Creatinine Ratio 33 (6-26); Blood Urea Nitrogen 22 mg/dL (8-23); Calcium 8.9 mg/dL (8.6-10.3); Carbon Dioxide 25 mEq/L (23-29); Chloride 106 mEq/L (98-107); Glucose 108 mg/dL (70-105); Osmolality,Calculated 290 (280-300); Potassium 3.5 mEq/L (3.5-5.1); Sodium 138 mEq/L (136-145); eGFR For African Americans > 60 (> 60); eGFR For Non-African Americans > 60 (> 60)
[2020-03-09] MEDS ORDERED: Perflutren Lipid Microsphere 1.3 ML in 0.9 % Sodium Chloride 8.7 ML IVP ONE (08:41)
[2020-03-09] MEDS ORDERED: *HR* Promethazine 25 MG/ML VIAL IVP PRN (08:48)
[2020-03-09] MEDS ORDERED: Ondansetron 4 MG/2 ML VIAL IVP ONE (08:48)
[2020-03-09] MEDS ORDERED: Doxycycline 100 MG in 0.9 % Sodium Chloride Mini Bag 100 ML IVPB SCH (09:00)
[2020-03-09] MEDS ORDERED: Lidocaine -MPF 4% 5 ML AMPUL ONE (09:04)
[2020-03-09] MEDS ORDERED: Lidocaine -MPF 2% 2 ML VIAL ONE (09:04)
[2020-03-09] MEDS ORDERED: *HR* Succinylcholine 200 MG/10 ML VIAL IVP ONE (09:04)
[2020-03-09] MEDS ORDERED: *HR* Propofol 200 MG/20 ML VIAL IVP ONE (09:04)
[2020-03-09] MEDS ORDERED: *HR* FentaNYL (PF) 100 MCG/2 ML VIAL ONE (09:04)
[2020-03-09] MEDS ORDERED: Ondansetron 4 MG/2 ML VIAL ONE (09:18)
[2020-03-09] MEDS ORDERED: Dexamethasone 4 MG/ML VIAL ONE (09:18)
[2020-03-09] MEDS ORDERED: *HR* EPINEPHrine 1 MG/10 ML SYRINGE INTRATRACH PRN (09:20)
[2020-03-09] MEDS ORDERED: Albuterol 2.5 MG/3 ML NEBULIZER ONE (09:32)
[2020-03-09] MEDS ORDERED: Albuterol 2.5 MG/3 ML NEBULIZER IH ONE (09:35)
[2020-03-09] MEDS: predniSONE 20 MG TABLET PO SCH (10:35)
[2020-03-09] MEDS: Metoprolol XL (24 HR) Succ 25 MG TAB.ER.24H PO SCH (10:35)
[2020-03-09] MEDS: Cholecalciferol (D-3) 1,000 UNIT (25MCG) TABLET PO SCH (10:36)
[2020-03-09] MEDS ORDERED: Metoprolol XL (24 HR) Succ 25 MG TAB.ER.24H PO ONE (10:37)
[2020-03-09 14:00] LABS: Source of Body Fluid RLL BAL
[2020-03-09] MEDS ORDERED: Gadolinium Contrast Agent (WT Based) IV PRN (15:37)
[2020-03-09] MEDS: Ipratropium/Albuterol Neb 3 ML IH SCH ×3 (15:50→20:39)
[2020-03-09 17:07] LABS: Appearance of Body Fluid Cloudy (Clear); Volume of Body Fluid 20 mL
[2020-03-09] MEDS: Doxycycline 100 MG CAPSULE PO SCH (22:27)
[2020-03-10] MEDS: Ipratropium/Albuterol Neb 3 ML IH SCH ×7 (05:05→23:41)
[2020-03-10 05:36] LABS: Hematocrit 39.9 % (35.3-44.9); Hemoglobin 12.6 g/dL (11.5-15.4); Mean Corpuscular HGB Conc 31.6 g/dL (31.6-35.5); Mean Corpuscular Hemoglobin 28.5 pg (28.0-33.3); Mean Corpuscular Volume 90.3 fL (83.0-100.0); Mean Platelet Volume 10.8 fL (9.4-12.4); Platelet Count 167 K/mcL (140-400); Red Blood Count 4.42 M/mcL (3.82-4.97); Red Cell Distribution Width 13.1 % (11.5-14.5); White Blood Count 14.8 K/mcL (4.3-11.1)
[2020-03-10 06:02] LABS: BUN/Creatinine Ratio 31 (6-26); Blood Urea Nitrogen 22 mg/dL (8-23); Calcium 8.7 mg/dL (8.6-10.3); Carbon Dioxide 27 mEq/L (23-29); Chloride 106 mEq/L (98-107); Glucose 106 mg/dL (70-105); Osmolality,Calculated 294 (280-300); Potassium 4.3 mEq/L (3.5-5.1); Sodium 140 mEq/L (136-145); eGFR For African Americans > 60 (> 60); eGFR For Non-African Americans > 60 (> 60)
[2020-03-10] MEDS: *HR* Enoxaparin 40 MG/0.4 ML SYRINGE SQ SCH (06:49)
[2020-03-10] MEDS ORDERED: Perflutren Lipid Microsphere 1.3 ML in 0.9 % Sodium Chloride 8.7 ML IVP ONE (08:43)
[2020-03-10] MEDS ORDERED: Metoprolol XL (24 HR) Succ 50 MG TAB.ER.24H PO SCH ×2 (09:00)
[2020-03-10] MEDS: Cholecalciferol (D-3) 1,000 UNIT (25MCG) TABLET PO SCH (09:13)
[2020-03-10] MEDS: Doxycycline 100 MG CAPSULE PO SCH ×2 (09:13→21:32)
[2020-03-10] MEDS: predniSONE 20 MG TABLET PO SCH (09:13)
[2020-03-10] MEDS: cefTRIAXone 1,000 MG in Water for inj. (sterile) 10 ML IVP SCH (09:14)
[2020-03-10] MEDS: dexAMETHasone 4 MG TABLET PO SCH (21:32)
[2020-03-11] MEDS: Ipratropium/Albuterol Neb 3 ML IH SCH ×3 (04:33→11:17)
[2020-03-11 05:29] LABS: Basophils % 0.2 %; Hematocrit 40.5 % (35.3-44.9); Hemoglobin 12.9 g/dL (11.5-15.4); Immature Granulocytes % 0.6 % (0-4); Lymphocytes # 0.8 K/mcL (0.6-4.6); Lymphocytes % 6.4 %; Mean Corpuscular HGB Conc 31.9 g/dL (31.6-35.5); Mean Corpuscular Hemoglobin 28.1 pg (28.0-33.3); Mean Corpuscular Volume 88.2 fL (83.0-100.0); Mean Platelet Volume 11.2 fL (9.4-12.4); Monocytes # 0.5 K/mcL (0.0-1.3); Monocytes % 3.6 %; Platelet Count 188 K/mcL (140-400); Red Blood Count 4.59 M/mcL (3.82-4.97); Segmented Neutrophils % 89.2 %; White Blood Count 12.3 K/mcL (4.3-11.1)
[2020-03-11 05:45] LABS: BUN/Creatinine Ratio 29 (6-26); Blood Urea Nitrogen 20 mg/dL (8-23); Calcium 9.2 mg/dL (8.6-10.3); Carbon Dioxide 29 mEq/L (23-29); Chloride 102 mEq/L (98-107); Glucose 151 mg/dL (70-105); Osmolality,Calculated 292 (280-300); Sodium 138 mEq/L (136-145); eGFR For African Americans > 60 (> 60); eGFR For Non-African Americans > 60 (> 60)
[2020-03-11] MEDS ORDERED: DilTIAZem CD (24hr) 120 MG CAP.ER.24H PO ONE (05:46)
[2020-03-11] MEDS ORDERED: DilTIAZem CD (24hr) 180 MG CAP.ER.24H PO ONE (05:46)
[2020-03-11] MEDS ORDERED: Metoprolol XL (24 HR) Succ 50 MG TAB.ER.24H PO ONE (05:47)
[2020-03-11] MEDS: *HR* Enoxaparin 40 MG/0.4 ML SYRINGE SQ SCH (06:39)
[2020-03-11 07:47] VITALS: BP 148/99
[2020-03-11] MEDS ORDERED: DilTIAZem CD (24hr) 240 MG CAP.ER.24H PO SCH (09:00)
[2020-03-11] MEDS: dexAMETHasone 4 MG TABLET PO SCH (09:07)
[2020-03-11] MEDS: Doxycycline 100 MG CAPSULE PO SCH (09:07)
[2020-03-11] MEDS: cefTRIAXone 1,000 MG in Water for inj. (sterile) 10 ML IVP SCH (09:08)
[2020-03-11] MEDS: Cholecalciferol (D-3) 1,000 UNIT (25MCG) TABLET PO SCH (09:09)
[2020-03-12] MEDS ORDERED: DilTIAZem CD (24hr) 180 MG CAP.ER.24H PO SCH (09:00)
[2020-03-12] MEDS ORDERED: DilTIAZem CD (24hr) 120 MG CAP.ER.24H PO SCH (09:00)
[2020-03-12] MEDS ORDERED: Metoprolol XL (24 HR) Succ 50 MG TAB.ER.24H PO SCH (09:00)
== END 2020-03-11 13:58 | disposition home or self-care (01) | DRG 871 ==
LOC: 2NENU 12:54 → EMEROOARM 12:54 → 2NENU 17:40 → 2NNU 03-09 06:46 → SUATTDRO 03-10 22:05
PROVIDERS: ADMIT Internal Medicine; ATTEND Internal Medicine